=== PATIENT | female | born 1960 | race Caucasian/White ===

== ENCOUNTER 2023-11-21 05:33 | Observation (INO) ==
[~2023-11-21 05:33] MED LIST: NS 0.45% 1000 ml BAG 1,000 ML IV SCH; Naloxone 0.4 mg VIAL 0.4 mg/ml 1 ml VIAL IV PRN
[2023-11-21] MEDS ORDERED: Scopolamine 1 mg/72hr PATCH ONE (05:56)
[2023-11-21] MEDS ORDERED: Clindamycin 900 MG/50 **NS BAG 900 MG/50 ML BAG ONE (05:57)
[2023-11-21] MEDS: Scopolamine 1 mg/72hr PATCH TRANSDERM ONE (06:19)
[2023-11-21] MEDS: Lactated Ringers 1000 ml BAG 1,000 ML IV SCH ×2 (06:20→11:36)
[2023-11-21 06:21] LABS: Rapid COVID-19 Molecular Undetected (Undetected)
[2023-11-21] MEDS ORDERED: fentaNYL 250 mcg/5 ml 50 MCG/ML 5 ml VIAL (250 MCG) ONE ×2 (06:27→08:10)
[2023-11-21] MEDS ORDERED: Dexamethasone IV 4 MG/ML VIAL 1 ml VIAL ONE ×2 (06:27→07:11)
[2023-11-21] MEDS ORDERED: Propofol 10 MG/ML 20 ML BTL ONE (06:27)
[2023-11-21] MEDS ORDERED: Rocuronium 50 mg VIAL 10 mg/ml 5 ml VIAL (50 mg) ONE ×2 (06:27→07:52)
[2023-11-21] MEDS ORDERED: Lidocaine 2% PF 5 ML VIAL ONE (06:27)
[2023-11-21] MEDS ORDERED: Midazolam 2 mg/2 ml VIAL 1 mg/ml 2 ml VIAL (2 mg) ONE ×2 (06:27→07:11)
[2023-11-21] MEDS ORDERED: Ondansetron 4 mg VIAL 2 MG/ML 2 ml VIAL ONE ×2 (06:27→10:09)
[2023-11-21] MEDS ORDERED: Bupivacaine 0.25% SDV 30 ML ONE (06:46)
[2023-11-21] MEDS ORDERED: ROPIVACAINE 5 MG/ML 30 ML BTL (0.5%) ONE (07:11)
[2023-11-21] MEDS ORDERED: HYDROmorphone 0.5 MG/0.5 ML SYRINGE ONE (08:18)
[2023-11-21] MEDS ORDERED: Lactulose 30 ml UDC PO PRN (09:52)
[2023-11-21] MEDS ORDERED: Magnesium Hydroxide LIQ 30 ML UDC PO PRN (09:52)
[2023-11-21] MEDS ORDERED: Calcium Carb (TUMS) 500 mg CHEW TAB PO PRN (09:52)
[2023-11-21] MEDS ORDERED: Ondansetron ODT 4 mg TAB 4 MG TAB PO PRN (09:52)
[2023-11-21] MEDS ORDERED: Ondansetron 4 mg VIAL 2 MG/ML 2 ml VIAL IV PRN (09:52)
[2023-11-21] MEDS: Ondansetron 4 mg VIAL 2 MG/ML 2 ml VIAL IV PRN (10:10)
[2023-11-21] MEDS ORDERED: fentaNYL 100 mcg/2 ml 50 MCG/ML VIAL ONE (10:16)
[2023-11-21] MEDS: Metoclopramide 5 MG/ML VIAL (10 mg) IV PRN (10:17)
[2023-11-21] MEDS ORDERED: Metoclopramide 5 MG/ML VIAL (10 mg) ONE (10:17)
[2023-11-21] MEDS: fentaNYL 100 mcg/2 ml 50 MCG/ML VIAL IV PRN (10:19)
[2023-11-21] MEDS: BUPIVACAINE **LIPOSOME/PF 13.3 MG/ML (266MG/ 20ML) VIAL (RESTRICTED) INFIL ONE (11:37)
[2023-11-21] MEDS: Acetaminophen IV 1 GM/100ML 1,000 MG/100 ML BAG IV ONE (11:37)
[2023-11-21] MEDS: Buffered Lidocaine 1% SYRIN 1 ml INTRADERM ONE (11:37)
[2023-11-21] MEDS: Clindamycin 900 MG/D5W BAG 900 MG/50 ML BAG IVPB SCH (16:06)
[2023-11-21] MEDS ORDERED: Magnesium Hydroxide LIQ 30 ML UDC PO SCH (21:00)
[2023-11-22] MEDS ORDERED: Cholecalciferol (VIT D3) 400 units TAB PO SCH (09:00)
[2023-11-22] MEDS ORDERED: Vitamin THERAPEUTIC TAB PO SCH (09:00)
== END 2023-11-21 17:03 | disposition home or self-care (01) ==
LOC: SSU 05:33 → OR 05:33
PROVIDERS: ADMIT Orthopaedic Surgery Sports Medicine; ATTEND Orthopaedic Surgery Sports Medicine